=== PATIENT | male | born 1960 | race Caucasian/White ===

== ENCOUNTER 2019-06-30 12:04 | Day surgery (SDC) | payer MEDICAID ==
[2019-06-30] VITALS (9 sets, daily range): BP systolic 96–120; BP diastolic 54–84
[~2019-06-30] VITALS: Ht 185.4 cm; Wt 96.5 kg
[~2019-06-30 12:04] MED LIST: ASPI-1265 PO; ATOR20TA66 PO; DIGO0.25 PO; LISI-604 PO; NITR0.4T51 SL; SERT100T PO
[2019-06-30] MEDS ORDERED: normal saline 1000ml 1,000 ML IV ONE (12:30)
[2019-06-30] MEDS ORDERED: diphenhydrAMINE 25mg capsule PO ONE (12:30)
[2019-06-30] MEDS ORDERED: SACU1TAB7 PO (12:49)
[2019-06-30] MEDS ORDERED: ZET10T PO (12:49)
[2019-06-30] MEDS ORDERED: ATOR40TA71 PO (12:49)
[2019-06-30] MEDS ORDERED: FENO48TA15 PO (12:49)
[2019-06-30 13:32] LABS: BASOPHILS # (AUTO) 0.1 X10'3 (0-0.2); BASOPHILS % (AUTO) 0.9 % (0-1); EOSINOPHILS # (AUTO) 0.2 X10'3 (0-0.9); EOSINOPHILS % (AUTO) 3.7 % (0-6); HEMATOCRIT 47.8 % (42.0-52.0); HEMOGLOBIN 16.6 g/dl (14.0-17.9); LYMPHOCYTES # (AUTO) 2.1 X10'3 (1.1-4.8); LYMPHOCYTES % (AUTO) 37.4 % (21-51); MEAN CORPUSCULAR HEMOGLOBIN 30.8 PG (27.0-31.0); MEAN CORPUSCULAR HGB CONC 34.6 g/dL (33.0-36.5); MEAN CORPUSCULAR VOLUME 88.9 FL (78-98); MEAN PLATELET VOLUME 7.1 FL (7.4-10.4); MONOCYTES # (AUTO) 0.4 X10'3 (0-0.9); MONOCYTES % (AUTO) 7.3 % (2-12); NEUTROPHILS # (AUTO) 2.8 X10'3 (1.8-7.7); NEUTROPHILS % (AUTO) 50.7 % (42-75); PLATELET COUNT 186 X10'3 (140-440); RED BLOOD COUNT 5.38 X10'6 (4.70-6.10); RED CELL DISTRIBUTION WIDTH 14.1 % (11.5-14.5); WHITE BLOOD COUNT 5.5 X10'3 (4.5-11.0)
[2019-06-30 13:37] LABS: ALBUMIN 4.5 G/DL (3.4-5.0); ANION GAP 8 (8-16); BLOOD UREA NITROGEN 8 MG/DL (7-18); BUN/CREATININE RATIO 8.1 (5.4-32.0); CALCIUM 8.7 MG/DL (8.5-10.1); CHLORIDE 111 MMOL/L (99-107); CREATININE 0.99 MG/DL (0.60-1.10); GLUCOSE 87 MG/DL (70-104); MAGNESIUM 2.1 MG/DL (1.5-2.4); POTASSIUM 4.5 MMOL/L (3.5-5.1); SODIUM 145 MMOL/L (135-145); eGFR 77 ML/MIN
[2019-06-30] MEDS ORDERED: midazolam 2 mg/2 ml injection ONE ×2 (15:29→15:53)
[2019-06-30] MEDS ORDERED: LIDOcaine 1% (10mg/ml)w/preservative injection 20ml MDV ONE (15:29)
[2019-06-30] MEDS ORDERED: fentaNYL/PF 50MCG/1 ML 2ML syringe ONE (15:29)
[2019-06-30] MEDS ORDERED: iohexol 350 MG/ML 50ML vial IV ONE (15:29)
[2019-06-30] MEDS ORDERED: iohexol 350MG/ML 100ml bottle IV ONE (15:29)
[2019-06-30] MEDS ORDERED: proCHLORperazine 10 MG/2 ml inj IV PRN (16:50)
[2019-06-30] MEDS ORDERED: OXAZEpam 15mg capsule PO PRN (16:50)
[2019-06-30] MEDS ORDERED: HYDROcodone/acetaminophen 5mg/325mg tablet PO PRN (16:50)
[2019-06-30] MEDS ORDERED: HYDROcodone/acetaminophen 10/325mg tab PO PRN (16:50)
[2019-06-30] MEDS ORDERED: normal saline 1000ml 1,000 ML IV SCH (16:50)
[2019-06-30] MEDS ORDERED: ondansetron/PF 4mg/2ml inj IV PRN (16:50)
== END 2019-06-30 19:40 | disposition home or self-care (01) ==
LOC: SSTAY O 12:04
PROVIDERS: ATTEND Internal Medicine Cardiovascular Disease
DX: R94.39 Abnormal result of other cardiovascular function study (principal); I25.10 Atherosclerotic heart disease of native coronary artery without angina pectoris; I47.2 Ventricular tachycardia; I48.0 Paroxysmal atrial fibrillation; E78.5 Hyperlipidemia, unspecified; F32.9 Major depressive disorder, single episode, unspecified; G47.30 Sleep apnea, unspecified; Z87.891 Personal history of nicotine dependence; Z95.1 Presence of aortocoronary bypass graft; Z98.890 Other specified postprocedural states; Z79.82 Long term (current) use of aspirin; Z79.899 Other long term (current) drug therapy; Z88.8 Allergy status to other drugs, medicaments and biological substances; Z95.810 Presence of automatic (implantable) cardiac defibrillator
CPT/HCPCS: 36415; 80048; 83735; 85025; 85610; 93005; 93459; 99152; 99153; C1769; C1894; J1644; J2001; J2250; J3010; J7030; Q0163; Q9967; A4620; A6258; C1760